=== PATIENT | male | born 1990 | race African-American/Black ===

== ENCOUNTER 2019-07-11 19:45 | Emergency (ER) | payer MEDICAID, OTHER ==
[~2019-07-11] VITALS: Ht 170.2 cm; Wt 63.5 kg
[2019-07-11 19:45] VITALS: BP 133/71
== END 2019-07-11 20:28 | disposition home or self-care (01) ==
LOC: ER 19:46
DX: B34.9 Viral infection, unspecified (principal); F17.200 Nicotine dependence, unspecified, uncomplicated